=== PATIENT | female | born 1980 | race Two or more races ===

== ENCOUNTER 2023-12-19 09:30 | Emergency (ER) | payer BC, OTHER ==
[~2023-12-19] VITALS: Ht 154.9 cm; Wt 88.0 kg
[2023-12-19 11:40] VITALS: BP 130/73; PULSE 79; RESP 18; TEMP 98.4; O2SAT 99
[2023-12-19 12:16] LABS: Rapid Influenza A Negative (Negative); Rapid Influenza B Negative (Negative)
[2023-12-19 12:35] LABS: COVID19 ANTIGEN SOFIA FIA POSITIVE (NEGATIVE)
[2023-12-19] MEDS ORDERED: PROM1SOL4 PO (12:37)
[2023-12-19] MEDS ORDERED: BENZ100C97 PO (12:37)
[2023-12-19] MEDS ORDERED: PRED20TA2 PO (12:37)
[2023-12-19] MEDS ORDERED: IBUP1TAB5 PO (12:37)
[2023-12-19] MEDS ORDERED: ACET500T58 PO (12:37)
== END 2023-12-19 12:47 | disposition home or self-care (01) ==
LOC: ER 09:30
DX: U07.1 COVID-19 (principal)
CPT/HCPCS: 36415; 71046; 87426; 87804